=== PATIENT | male | born 1975 | race Caucasian/White ===

== ENCOUNTER 2017-08-12 20:21 | Emergency (ER) | payer BC ==
[2017-08-12] MEDS ORDERED: Ketorolac INJ* 30 MG/ML 1 ML VIAL IV PUSH ONE (23:28)
[2017-08-12] MEDS ORDERED: NS 0.9% 1000 ML* 1,000 ML IV ONE (23:28)
[2017-08-12] MEDS ORDERED: Ondansetron INJ* 2 MG/ML VIAL IV ONE (23:28)
[2017-08-12 23:50] LABS: ABS Basophils 0.1 10^3/ul (0-0.2); ABS Eosinophils 0 10^3/ul (0-0.6); ABS Lymphocytes 0.8 10^3/ul (1.0-4.8); ABS Monocytes 0.7 10^3/ul (0-0.8); ABS Neutrophils 11.2 10^3/ul (1.5-7.7); ABS Nucleated RBC 0 10^3/ul; Eosinophil % 0.1 % (0-6); Hematocrit 41 % (42-52); Hemoglobin 13.9 g/dl (14.0-18.0); Lymphocyte % 6.2 % (25-47); Mean Corpuscular HGB Conc 34 g/dl (31-36); Mean Corpuscular Hemoglobin 31 pg (27-31); Mean Corpuscular Volume 90 fL (80-94); Mean Platelet Volume 9.7 um3 (7.4-10.4); Nucleated Red Blood Cells % 0; Platelet Count 236 10^3/ul (150-450); Red Blood Count 4.54 10^6/ul (4.0-5.4); Red Cell Distribution Width 14 % (10.5-15); White Blood Count 12.7 10^3/ul (3.5-10.8)
[2017-08-13 00:04] LABS: EGFR Non-African American 58.2 (>60)
[2017-08-13] MEDS ORDERED: Oseltamivir CAP* 75 MG CAP PO ONE (00:48)
[2017-08-13 03:17] VITALS: BP 111/60
--- NOTE | 2017-08-13 03:58 | ED ---
Can Cheung Gabriel, scribed for Forrest Calixto MD on 08/12/17 at 2332 . Influenza-Like Illness - HPI Summary HPI Summary: This patient is a 41 year old M BIBA to [facility] accompanied by his with a chief complaint of flu like symptoms that got worse this morning. The patient rates the pain 5/10 in severity. Patient reports cough, sinus pain, CHARLES, fever, chills, myalgia, sore throat, post nasal drip, and nausea. Patient denies congestion, vomiting, back pain, and urinary symptoms. [facility] here. - History of Current Complaint Chief Complaint: EDGeneral Time Seen by Provider: 08/12/17 23:13 Hx Obtained From: Patient Onset/Duration: Still Present, Worse Since - this morning Severity: Moderate Associated Signs & Symptoms: Fever, Myalgia, Cough, Sore Throat, Headache - Allergy/Home Medications Allergies/Adverse Reactions: Allergies Allergy/AdvReac Type Severity Reaction Status Date / Time prednisone Allergy Anaphylatic Verified 08/12/17 20:25 Shock PMH/Surg Hx/FS Hx/Imm Hx Endocrine/Hematology History: Denies: Hx Diabetes, Hx Thyroid Disease Cardiovascular History: Denies: Hx Hypertension Respiratory History: Denies: Hx Asthma, Hx Chronic Obstructive Pulmonary Disease (COPD) GI History: Denies: Hx Ulcer - Surgical History Surgery Procedure, Year, and Place: partial thyroidectomy. left ear. inguinal hernia Infectious Disease History: No Infectious Disease History: Denies: Hx Clostridium Difficile, Hx Hepatitis, Hx Human Immunodeficiency Virus (HIV), Hx of Known/Suspected MRSA, Hx Shingles, Hx Tuberculosis, Hx Known/ Suspected VRE, Hx Known/Suspected VRSA, History Other Infectious Disease, Traveled Outside the [place] in Last 30 Days - Family History Known Family History: Negative: Respiratory Disease, Seizure Disorder - Social History Occupation: Employed Full-time Lives: With Family Alcohol Use: Occasionally Substance Use Type: Reports: None Smoking Status (MU): Former Smoker Type: Cigarettes Amount Used/How Often: 1/2 ppd Length of Time of Smoking/Using Tobacco: 15 years Have You Smoked in the Last Year: No Review of Systems Positive: Fever, Chills ENT: Negative - congestion Positive: Sore Throat, Other - sinus pain and post nasal drip Positive: Cough Positive: Nausea. 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, both ear are clear, there is mucus in the posterior pharynx Neck: supple, non-tender Respiratory: CTA, breath sounds present Cardiovascular: RRR, pulses symmetrical Abdomen: non-tender, soft Bowel Sounds: present Musculoskeletal: normal, strength/ROM intact Neuro: normal, sensory motor intact, A&Ox3 Triage Information Reviewed: Yes Vital Signs On Initial Exam: Initial Vitals Temp Pulse Resp BP Pulse Ox 100.8 F 84 16 128/97 98 08/12/17 20:23 08/12/17 20:23 08/12/17 20:23 08/12/17 20:23 08/12/17 20:23 Vital Signs Reviewed: Yes Diagnostics - Vital Signs Vital Signs Temp Pulse Resp BP Pulse Ox 08/12/17 20:23 100.8 F 84 16 128/97 98 - Laboratory Lab Results: Lab Results 08/12/17 08/12/17 08/13/17 Range/Units 23:35 23:35 00:15 WBC 12.7 H (3.5-10.8) 10^3/ul RBC 4.54 (4.0-5.4) 10^6/ul Hgb 13.9 L (14.0-18.0) g/dl Hct 41 L (42-52) % MCV 90 (80-94) fL MCH 31 (27-31) pg MCHC 34 (31-36) g/dl RDW 14 (10.5-15) % Plt Count 236 (150-450) 10^3/ul MPV 9.7 (7.4-10.4) um3 Neut % (Auto) 87.8 H (38-83) % Lymph % (Auto) 6.2 L (25-47) % Kane % (Auto) 5.4 (0-7) % Eos % (Auto) 0.1 (0-6) % Baso % (Auto) 0.5 (0-2) % Absolute Neuts (auto) 11.2 H (1.5-7.7) 10^3/ul Absolute Lymphs (auto) 0.8 L (1.0-4.8) 10^3/ul Absolute Monos (auto) 0.7 (0-0.8) 10^3/ul Absolute Eos (auto) 0 (0-0.6) 10^3/ul Absolute Basos (auto) 0.1 (0-0.2) 10^3/ul Absolute Nucleated RBC 0 10^3/ul Nucleated RBC % 0 Sodium 137 L (139-145) mmol/L Potassium 3.9 (3.5-5.0) mmol/L Chloride 103 (101-111) mmol/L Carbon Dioxide 26 (22-32) mmol/L Anion Gap 8 (2-11) mmol/L BUN 13 (6-24) mg/dL Creatinine 1.34 H (0.67-1.17) mg/dL Est GFR ( Amer) 74.8 (>60) Est GFR (Non-Af Amer) 58.2 (>60) BUN/Creatinine Ratio 9.7 (8-20) Glucose 133 H (70-100) mg/dL Calcium 9.6 (8.6-10.3) mg/dL Influenza A (Rapid) Negative (Negative) Influenza B (Rapid) Negative (Negative) Result Diagrams: 08/12/17 23:35 08/12/17 23:35 Lab Statement: Any lab studies that have been ordered have been reviewed, and results considered in the medical decision making process. - Radiology CXR Radiology Interpretation Completed By: ED Physician - No acute disease Re-Evaluation - Re-Evaluation First Eval Change: Improved - Feeling much better after IV fluids, Toradol and Zofran. Flu Symptom Course/Dx - Course Course Of Treatment: Patient with abrupt onset of flulike symptoms, fever and weakness. No syncope. Chest x-ray and laboratories are relatively benign. 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 Started presumptive Tamiflu here and will discharge on the same. - Diagnoses Differential Diagnosis/HQI/PQRI: Positive: Bronchitis, Influenza, Pneumonia, Upper Respiratory Infection Provider Diagnoses: Flu-like symptoms Discharge - Sign-Out/Discharge Documenting (check all that apply): Discharge/Admit/Transfer - Discharge Plan Condition: Good Disposition: HOME Prescriptions: Oseltamivir CAP* [Tamiflu CAP*] 75 mg PO BID #9 cap Patient Education Materials: Influenza (ED) Forms: *Work Release Referrals: Vanessa Badillo MD [Primary Care Provider] - Additional Instructions: Drink plenty of fluids. Tylenol, ibuprofen for fever and body aches. Mucinex for congestion. Call first thing in the morning to follow up with her primary care physician. Return if worse, high fevers, new symptoms or other concerns as discussed. The documentation as recorded by the Can lozano Gabriel accurately reflects the service I personally performed and the decisions made by me, Forrest Calixto MD.
--- NOTE | 2017-08-13 08:29 | RAD ---
INDICATION: Fever, sore throat, body aches, intermittent cough. Nausea without vomiting. COMPARISON: May 29, 2013 TECHNIQUE: Dual energy PA and routine lateral views of the chest were obtained. REPORT: No focal pulmonary lesion, compelling alveolar consolidation, pleural effusion, pneumothorax. The heart, pulmonary vasculature, and mediastinal contours are unremarkable. Negative for free air beneath the diaphragm. Mild S-shaped curve of the thoracic spine convex to the RIGHT superiorly and to the LEFT inferiorly noted without change. IMPRESSION: No evidence for pneumonia. No evidence for acute intrathoracic disease.
== END 2017-08-13 02:43 | disposition home or self-care (01) ==
LOC: ED 20:21
DX: J11.1 Influenza due to unidentified influenza virus with other respiratory manifestations (principal); Z88.8 Allergy status to other drugs, medicaments and biological substances; Z87.891 Personal history of nicotine dependence
CPT/HCPCS: 36415; 71046; 80048; 85025; 87502; 96361; 96374; 96375; 99283; A9270-GY; J1885; J2405